=== PATIENT | female | born 1960 | race African-American/Black ===

== ENCOUNTER 2019-07-10 21:07 | Emergency (ER) | payer MEDICAID ==
[~2019-07-10] VITALS: Ht 157.5 cm; Wt 68.0 kg
[~2019-07-10 21:07] MED LIST: ALPR0.5T7; CARI350T22; HYDR-2616; OMEPRAZOLE DR 20 MG CAPSULE; SIMV-8; TEMA30CA
[2019-07-10 21:42] VITALS: BP 164/65
[2019-07-11] MEDS ORDERED: TRIAMCINOLONE 40MG/ML 1ML VIAL IM ONE (02:00)
[2019-07-11] MEDS ORDERED: BACLOFEN 10 MG TAB PO ONE (02:00)
[2019-07-11] MEDS ORDERED: HYDROcodone-ACET 10/325MG TAB PO ONE (02:00)
[2019-07-11] MEDS ORDERED: LIDOCAINE 1% HCL (LOCAL ANESTH.) INJ 20ML MDV ONE (02:17)
== END 2019-07-11 02:46 | disposition home or self-care (01) ==
LOC: ER 21:07
DX: S33.5XXA Sprain of ligaments of lumbar spine, initial encounter (principal); X50.0XXA Overexertion from strenuous movement or load, initial encounter; Y93.89 Activity, other specified; Y99.8 Other external cause status; Y92.89 Other specified places as the place of occurrence of the external cause
CPT/HCPCS: 96372; 99283; J3301; J2001